=== PATIENT | male | born 1985 | race Two or more races ===

== ENCOUNTER 2021-04-23 03:29 | Emergency (ER) | payer OTHER ==
[~2021-04-23] VITALS: Ht 188 cm; Wt 117.9 kg
[2021-04-23] MEDS ORDERED: CLINDAMYCIN HC300 MG PO (05:47)
[2021-04-23] MEDS ORDERED: NAPROXEN375 MG PO (05:48)
[2021-04-23] MEDS ORDERED: INTESTINEX680 M1 PO (05:48)
== END 2021-04-23 06:37 | disposition home or self-care (01) ==
LOC: ER 03:29
DX: S61.411A Laceration without foreign body of right hand, initial encounter (principal); S09.8XXA Other specified injuries of head, initial encounter; W19.XXXA Unspecified fall, initial encounter; Y92.410 Unspecified street and highway as the place of occurrence of the external cause